=== PATIENT | male | born 1995 | race Caucasian/White ===

== ENCOUNTER → 2022-01-16 | Emergency (ER) | payer MEDICAID ==
[~2022-01-16] VITALS: Ht 180.3 cm; Wt 122.5 kg
[2022-01-16 22:35] VITALS: BP_SYST 128
--- NOTE | 2022-01-16 22:35 | NUR ---
Patient triaged and placed in waiting room. VSS and patient appears in no acute distress at this time. Accompanied by fam member, awaiting available bed, and MD notified of need for MSE.
--- NOTE | 2022-01-16 22:50 | NUR ---
Call pt name in the WR.No answer.
--- NOTE | 2022-01-16 22:55 | NUR ---
Call pt name in the WR.No answer.
--- NOTE | 2022-01-16 23:00 | NUR ---
Call pt name in the WR.No answer.
== END | disposition left against medical advice (07) ==
LOC: SED 22:26
DX: S09.90XA Unspecified injury of head, initial encounter (principal); X58.XXXA Exposure to other specified factors, initial encounter; Y93.89 Activity, other specified; Y92.89 Other specified places as the place of occurrence of the external cause; Y99.8 Other external cause status; Z53.21 Procedure and treatment not carried out due to patient leaving prior to being seen by health care provider